=== PATIENT | male | born 1980 | race Caucasian/White ===

== ENCOUNTER 2021-06-28 17:37 | Emergency (ER) | payer SELFPAY ==
[~2021-06-28] VITALS: Ht 160 cm; Wt 77.0 kg
[2021-06-28] MEDS ORDERED: CEFAZOLIN 1000MG PREMIX 50 ML IV ONE (18:15)
[2021-06-28] MEDS ORDERED: TETANUS, DIPHTHERIA, PERTUSSIS VAC/PF 0.5ML (>10YR OLD) IM ONE (18:15)
[2021-06-28 18:43] LABS: BASOPHILS % 1.6 % (0.0-2.0); EOSINOPHILS % 8.5 % (0.0-5.0); HEMATOCRIT. 46.7 % (42.0-52.0); HEMOGLOBIN. 15.5 g/dL (14.0-18.0); LYMPHOCYTES % 37.4 % (20.0-50.0); MEAN CORPUSCULAR HEMOGLOBIN 29.6 pg (28.0-32.0); MEAN CORPUSCULAR VOLUME 89.2 fL (80.0-94.0); MEAN PLATELET VOLUME 8.2 fl (7.4-10.4); MONOCYTES % 8.1 % (2.0-8.0); NEUTROPHILS % 44.4 % (40.0-76.0); PLATELET 386 x1000/uL (130-400); RED BLOOD CELL COUNT 5.24 mill/uL (4.7-6.1); RED CELL DISTRIBUTION WIDTH 13.2 % (11.6-14.6)
[2021-06-28 18:48] LABS: CHLORIDE 108 mEq/L (98-107)
[2021-06-28] MEDS ORDERED: IOHEXOL-300 100 ML BOTTLE ONE (22:26)
[2021-06-28] MEDS ORDERED: LACTATED RINGERS 1,000 ML IV SCH (23:30)
[2021-06-28] MEDS ORDERED: CEPH500C2 MT (23:39)
[2021-06-28] MEDS ORDERED: SULF1TAB48 MT (23:39)
[2021-06-29 01:00] VITALS: BP 112/69
== END 2021-06-29 01:41 | disposition home or self-care (01) ==
LOC: ER 17:37
DX: S01.411A Laceration without foreign body of right cheek and temporomandibular area, initial encounter (principal); S01.511A Laceration without foreign body of lip, initial encounter; F10.129 Alcohol abuse with intoxication, unspecified; Y90.9 Presence of alcohol in blood, level not specified; X99.8XXA Assault by other sharp object, initial encounter; Y93.89 Activity, other specified; Y92.89 Other specified places as the place of occurrence of the external cause
CPT/HCPCS: 12014; 36415; 70450; 70487; 80053; 85025; 90471; 90715; 96361; 96365; 99285; J0690; Q9967

== ENCOUNTER 2024-06-21 21:01 | Emergency (ER) | payer MEDICAID, OTHER ==
[~2024-06-21] VITALS: Ht 165.1 cm; Wt 114.0 kg
[~2024-06-21 21:01] MED LIST: CEPH500C2 MT; SULF1TAB48 MT
[2024-06-21 21:04] VITALS: BP 143/94; PULSE 99; RESP 18; TEMP 98.2; O2SAT 99
[2024-06-21 23:56] LABS: BASOPHILS % 1.3 % (0.0-2.0); EOSINOPHILS % 11.7 % (0.0-5.0); HEMATOCRIT. 45.6 % (42.0-52.0); HEMOGLOBIN. 15.3 g/dL (14.0-18.0); LYMPHOCYTES % 43.4 % (20.0-50.0); MEAN CORPUSCULAR HEMOGLOBIN 31.4 pg (28.0-32.0); MEAN CORPUSCULAR HGB CONC 33.6 g/dL (31.0-37.0); MEAN CORPUSCULAR VOLUME 93.5 fL (80.0-94.0); MEAN PLATELET VOLUME 9.2 fl (7.4-10.4); MONOCYTES % 11.4 % (2.0-8.0); NEUTROPHILS % 32.2 % (40.0-76.0); PLATELET 214 x1000/uL (130-400); RED BLOOD CELL COUNT 4.88 mill/uL (4.7-6.1); RED CELL DISTRIBUTION WIDTH 14.4 % (11.6-14.6); WHITE BLOOD COUNT 9.3 x1000/uL (4.5-11.0)
[2024-06-22 00:08] LABS: CHLORIDE 106 mEq/L (98-107); POTASSIUM 3.5 mEq/L (3.5-5.1); SODIUM 146 mEq/L (136-145)
[2024-06-22 00:09] LABS: CALCIUM 8.8 mg/dL (8.7-10.4); CARBON DIOXIDE 27 mEq/L (21-32)
[2024-06-22 00:14] LABS: CREATININE 0.8 mg/dL (0.6-1.3); GLUCOSE 106 mg/dL (70-105); UREA NITROGEN BLOOD 11 mg/dL (9-23)
[2024-06-22 00:15] LABS: TROPONIN I HIGH SENSITIVITY 12 ng/L (3.0-53)
[2024-06-22 00:28] LABS: ETHANOL BLOOD 430 mg/dL (<10)
[2024-06-22] MEDS ORDERED: ONDANSETRON HCL 4MG/2ML INJ IV PRN (00:45)
[2024-06-22] MEDS ORDERED: ACETAMINOPHEN 325MG TABLET PO PRN (00:45)
[2024-06-22] MEDS ORDERED: IPRATROPIUM/ALBUTEROL 0.5-3(2.5)MG/3ML NEB HHN PRN (00:45)
[2024-06-22 01:19] LABS: ALANINE AMINOTRANSFERASE 70 IU/L (10-49); ALBUMIN 4.6 g/dL (3.2-4.8); ASPARTATE AMINOTRANSFERASE 72 IU/L (<34)
[2024-06-22 01:20] LABS: BILIRUBIN TOTAL 0.3 mg/dL (0.1-1.0); PHOSPHORUS 4.6 mg/dL (2.5-4.9); PROTEIN TOTAL 7.5 g/dL (6.0-8.3)
[2024-06-22 01:31] LABS: BILIRUBIN DIRECT < 0.1 mg/dL (<=3.0)
[2024-06-22] MEDS: SODIUM CHLORIDE 0.9% 1,000 ML IV ONE (02:48)
[2024-06-22] MEDS: PANTOPRAZOLE SODIUM 40 MG/VIAL IV SCH (02:57)
[2024-06-22] MEDS: MVI, ADULT NO.1 10 ML, FOLIC ACID 1 MG, THIAMINE HCL 100 MG in SODIUM CHLORIDE 0.9% 1,0... IV NR (02:57)
[2024-06-22 03:24] LABS: CLARITY URINE CLEAR (CLEAR); COLOR URINE YELLOW (YELLOW); GLUCOSE URINE NEGATIVE (NEGATIVE); KETONES URINE NEGATIVE (NEGATIVE); LEUKOCYTE ESTERASE URINE NEGATIVE (NEGATIVE); NITRITE URINE NEGATIVE (NEGATIVE); OCCULT BLOOD URINE NEGATIVE (NEGATIVE); PH URINE 5.5 (4.5-8.0); PROTEIN URINE NEGATIVE (NEGATIVE); SPECIFIC GRAVITY URINE 1.009 (1.005-1.030); UROBILINOGEN URINE 0.2 E.U./dL (0.2-1.0)
[2024-06-22 03:32] LABS: *AMPHETAMINES SCREEN URINE NEGATIVE (NEGATIVE); *BARBITURATES SCREEN URINE NEGATIVE (NEGATIVE); *BENZODIAZEPINES SCREEN URINE NEGATIVE (NEGATIVE); *COCAINE SCREEN URINE NEGATIVE (NEGATIVE); METHADONE URINE SCREEN NEGATIVE (NEGATIVE); OPIATES URINE SCREEN NEGATIVE (NEGATIVE)
[2024-06-22 03:33] LABS: CANNABINOID URINE SCREEN NEGATIVE (NEGATIVE); ECSTASY MDMA SCREEN URINE NEGATIVE (NEGATIVE); PHENCYCLIDINE URINE SCREEN PRESUMTIVE POSITIVE (NEGATIVE)
[2024-06-22 05:33] LABS: AMYLASE 105 IU/L (30-118); CREATINE KINASE 428 IU/L (46-171); TROPONIN I HIGH SENSITIVITY 10 ng/L (3.0-53)
[2024-06-22] MEDS ORDERED: FOLIC ACID 1MG TABLET PO SCH (09:00)
[2024-06-22] MEDS ORDERED: THIAMINE HCL 100MG TABLET PO SCH (09:00)
[2024-06-22] MEDS ORDERED: MULTIVITAMINS,THER W-MINERALS TABLET PO SCH (09:00)
== END 2024-06-22 09:53 | disposition left against medical advice (07) ==
LOC: ER 21:01
DX: F10.129 Alcohol abuse with intoxication, unspecified (principal); I49.9 Cardiac arrhythmia, unspecified; Y90.8 Blood alcohol level of 240 mg/100 ml or more
CPT/HCPCS: 80076; 80048; 80320; 83735; 84100; 85025; 84484 ×2; 36415 ×2; 71045; 70450; 93005; 99285; 80305; 81003; 82150; 82550; 83690; 76700; 96368; 96365; J7030 ×2; J3490 ×2; J2470; J3411; Z7610 ×2; G0480